=== PATIENT | female | born 1970 | race African-American/Black ===

== ENCOUNTER 2017-02-13 13:55 | Outpatient (CLI) | payer OTHER | END 2017-02-13 13:56 | disposition home or self-care (01) | LOC: HPCALD 13:55 | PROVIDERS: ATTEND Family Medicine | DX: N76.0 Acute vaginitis (principal) | CPT/HCPCS: 87480; 87491; 87510; 87591; 87660 ==

== ENCOUNTER 2017-04-08 16:44 | Outpatient (CLI) | payer OTHER | END 2017-04-08 16:45 | disposition home or self-care (01) | LOC: HPCALD 16:44 | PROVIDERS: ATTEND Family Medicine | DX: N89.8 Other specified noninflammatory disorders of vagina (principal) | CPT/HCPCS: 87480; 87510; 87660 ==

== ENCOUNTER 2017-06-09 00:13 | Emergency (ER) | payer OTHER | END 2017-06-09 00:58 | disposition home or self-care (01) | LOC: BURERS 00:13 | DX: G43.909 Migraine, unspecified, not intractable, without status migrainosus (principal); K58.9 Irritable bowel syndrome, unspecified; M19.90 Unspecified osteoarthritis, unspecified site; J44.9 Chronic obstructive pulmonary disease, unspecified; K27.9 Peptic ulcer, site unspecified, unspecified as acute or chronic, without hemorrhage or perforation; F41.9 Anxiety disorder, unspecified; F31.9 Bipolar disorder, unspecified; F17.210 Nicotine dependence, cigarettes, uncomplicated; E11.40 Type 2 diabetes mellitus with diabetic neuropathy, unspecified; Z79.899 Other long term (current) drug therapy; Z79.84 Long term (current) use of oral hypoglycemic drugs | CPT/HCPCS: 99283 ==

== ENCOUNTER 2017-08-26 14:00 | Emergency (ER) | payer OTHER ==
[2017-08-26 15:00] LABS: Bilirubin Negative (Negative); Blood, Urine Negative (Negative); Clarity Slightly Cloudy (Clear); Glucose, Urine (Dipstick) Negative (Negative); Leukocyte Negative (Negative); Nitrite Negative (Negative); Protein, Urine (Dipstick) Trace mg/dL (Neg-Trace); Urobilinogen 0.2 mg/dL (0.2-1.0); pH, Urine 5.5 (5.0-9.0)
[2017-08-26] MEDS ORDERED: Azithromycin 250 MG TAB ONE (15:08)
[2017-08-28 02:36] LABS: Chlamydia by PCR Not Detected (NotDetected); GC by PCR Not Detected (NotDetected)
== END 2017-08-26 15:13 | disposition home or self-care (01) ==
LOC: BURERS 14:00
DX: N76.0 Acute vaginitis (principal); M19.90 Unspecified osteoarthritis, unspecified site; J44.9 Chronic obstructive pulmonary disease, unspecified; E11.40 Type 2 diabetes mellitus with diabetic neuropathy, unspecified; F31.9 Bipolar disorder, unspecified; F41.9 Anxiety disorder, unspecified; F17.210 Nicotine dependence, cigarettes, uncomplicated
CPT/HCPCS: 81003; 87480; 87491; 87510; 87591; 87660; 99284

== ENCOUNTER 2017-09-15 00:18 | Emergency (ER) | payer OTHER ==
[2017-09-15] MEDS ORDERED: Ondansetron HCl/PF 4 MG/2 ML Vial ONE (00:59)
[2017-09-15] MEDS ORDERED: Morphine 4 MG/ML Carpuject ONE (00:59)
[2017-09-15 01:09] LABS: #Basophils 0.2 thou/uL (0.0-0.2); #Eosinphils 0.3 thou/uL (0.0-0.7); #Lymphocytes 5.3 thou/uL (1.20-3.40); #Neutrophils 9.3 thou/uL (1.40-6.50); %Basophils 1.4 % (0.0-1.0); %Lymphocytes 32.9 % (21.0-51.0); %Monocytes 6.3 % (0.0-10.0); %Neutrophils 57.3 % (42.0-75.0); Hemoglobin 14.8 g/dL (12.0-16.0); Mean Corpuscular HGB CONC 32.3 g/dL (32.0-36.0); Mean Corpuscular Hemoglobin 29.4 pg (27.0-31.0); Mean Corpuscular Volume 91.1 fl (81.0-99.0); Mean Platelet Volume 7.6 fL (7.4-10.4); Platelet Count 306 thou/uL (130-400); RBC Distribution Width 12.9 % (11.5-14.5); Red Blood Cell (RBC) Count 5.03 mill/uL (4.20-5.40); White Blood Cell (WBC) Count 16.2 thou/uL (4.8-10.8)
[2017-09-15 01:18] LABS: ALT (SGPT) 26 U/L (8-55); AST (SGOT) 21 U/L (5-34); Albumin 4.3 g/dL (3.5-5.0); Alkaline Phosphatase 79 U/L (40-150); Anion Gap 14 mmol/L (10-20); BUN (Urea Nitrogen) 10 mg/dL (7.0-18.7); Bilirubin, Total 0.2 mg/dL (0.2-1.2); Calc. Creatinine Clearance 0 mL/min (70-130); Calcium 9.7 mg/dL (7.8-10.44); Carbon Dioxide 17 mmol/L (22-29); Chloride 111 mmol/L (98-107); Estimated GFR-MDRD 72; Globulin 3.7 g/dL (2.4-3.5); Glucose 93 mg/dL (70-105); Potassium 3.8 mmol/L (3.5-5.1); Sodium 138 mmol/L (136-145)
[2017-09-15] MEDS ORDERED: traMADol HCl 50 MG TAB ONE (01:50)
[2017-09-15 02:10] LABS: Bilirubin Negative (Negative); Blood, Urine Negative (Negative); Clarity Clear (Clear); Glucose, Urine (Dipstick) Negative (Negative); Leukocyte Negative (Negative); Nitrite Negative (Negative); Protein, Urine (Dipstick) Negative (Neg-Trace); Urobilinogen 0.2 mg/dL (0.2-1.0)
--- NOTE | 2017-09-15 07:38 | CT ---
PRELIMINARY REPORT/[facility]/EMERGENCY AFTER HOURS PROCEDURE: EXAM: CT Abdomen and Pelvis Without Intravenous Contrast CLINICAL HISTORY: 47 years old, female; Signs and symptoms; Other: Diarrhea; Patient HX: Pt presents to the er for diar traci, abdominal and flank pain TECHNIQUE: Axial computed tomography images of the abdomen and pelvis without intravenous contrast. All CT scans at this facility use one or more dose reduction techniques, viz.: automated exposure control; ma/kV adjustment per patient size (including targeted exams where dose is matched to indication; i.e. head) ; or iterative reconstruction technique. Coronal reformatted images were created and reviewed. COMPARISON: No relevant prior studies available. FINDINGS: Lower thorax: There is minimal bibasilar atelectatic change or scarring. ABDOMEN: Liver: There is hepatomegaly. Gallbladder and bile ducts: Unremarkable. No calcified stones. No ductal dilation. Pancreas: Unremarkable. No ductal dilation. Spleen: Unremarkable. No splenomegaly. Adrenals: Unremarkable. No mass. Kidneys and ureters: Unremarkable. No obstructing stones. No hydronephrosis. Stomach and bowel: Unremarkable. No obstruction. No mucosal thickening. Appendix: The appendix is unremarkable and seen best on axial image 48 of series 2. PELVIS: Bladder: Unremarkable. No stones. Reproductive: There are likely postoperative changes of hysterectomy. ABDOMEN and PELVIS: Intraperitoneal space: Unremarkable. No free air. No significant fluid collection. Bones/joints: No acute fracture. No dislocation. Soft tissues: Unremarkable. Vasculature: There are calcified phleboliths in the pelvis. No abdominal aortic aneurysm. Lymph nodes: Unremarkable. No enlarged lymph nodes. IMPRESSION: No acute findings. Thank you for allowing us to participate in the care of your patient. Dictated and Authenticated by: Kartik Herrera MD 09/15/2017 1:29 AM Central Time ([place] & [place]) FINAL REPORT CT ABDOMEN AND PELVIS WITHOUT CONTRAST: Date: 09/15/17 Comparison is made with the 07/07/15 CT scan. Axial slices were acquired after giving IV contrast. Coronal reconstructions were then done. FINDINGS: The lung bases are clear, except for some dependent atelectasis. The liver is a little generous in si ze, but no different than before. The spleen is unremarkable. There are no inflammatory changes aroun d the spleen as there were previously. The adrenal glands, kidneys, pancreas, gallbladder, and abdomi nal aorta are unremarkable within the limitations of a noncontrast study. The bowel is nondistended with no sign of obstruction. There are no particularly thickened loops or i nflammatory changes around bowel. No free air or free fluid is seen. Incidentally noted is a minimal fat-filled umbilical hernia that is no different than before. CT of the pelvis shows no pelvic mass, inflammatory changes, or other acute findings. No sign of appe ndicitis or diverticulitis. No acute bony changes detected. IMPRESSION: No acute abdominal or pelvic findings to explain the patient's symptoms. REPORT IN AGREEMENT WITH PRELIMINARY READING BY JOLYNN. POS: HOME
== END 2017-09-15 00:55 | disposition home or self-care (01) ==
LOC: BURERS 00:18
DX: R19.7 Diarrhea, unspecified (principal); K58.9 Irritable bowel syndrome, unspecified; M19.90 Unspecified osteoarthritis, unspecified site; J44.9 Chronic obstructive pulmonary disease, unspecified; K21.9 Gastro-esophageal reflux disease without esophagitis; E11.40 Type 2 diabetes mellitus with diabetic neuropathy, unspecified; F41.9 Anxiety disorder, unspecified; F31.9 Bipolar disorder, unspecified; F17.210 Nicotine dependence, cigarettes, uncomplicated; Z79.84 Long term (current) use of oral hypoglycemic drugs; Z79.899 Other long term (current) drug therapy
CPT/HCPCS: 74176; 80053; 81003; 85025; 96361; 96365; 96375; J2270; J2405

== ENCOUNTER 2017-10-19 10:33 | Emergency (ER) | payer OTHER ==
[2017-10-19] MEDS ORDERED: AMOXicillin 250 MG CAP ONE (11:23)
== END 2017-10-19 11:23 | disposition home or self-care (01) ==
LOC: BURERS 10:33
DX: J20.9 Acute bronchitis, unspecified (principal); M79.1 Myalgia; K58.9 Irritable bowel syndrome, unspecified; E11.40 Type 2 diabetes mellitus with diabetic neuropathy, unspecified; J44.9 Chronic obstructive pulmonary disease, unspecified; K21.9 Gastro-esophageal reflux disease without esophagitis; F31.9 Bipolar disorder, unspecified; F41.9 Anxiety disorder, unspecified; F17.210 Nicotine dependence, cigarettes, uncomplicated; M19.90 Unspecified osteoarthritis, unspecified site
CPT/HCPCS: 87804; 99283

== ENCOUNTER 2017-11-11 18:02 | Emergency (ER) | payer OTHER ==
[2017-11-11] MEDS ORDERED: HYDROcodone/Acetaminophen 10/325 mg Tablet ONE (18:47)
[2017-11-11] MEDS ORDERED: Sulfameth/Trimethoprim DS 800-160mg TAB ONE (18:48)
[2017-11-11] MEDS ORDERED: Clindamycin 150 MG CAP ONE (18:48)
== END 2017-11-11 18:55 | disposition home or self-care (01) ==
LOC: BURERS 18:02
DX: N76.2 Acute vulvitis (principal); L73.9 Follicular disorder, unspecified; M19.90 Unspecified osteoarthritis, unspecified site; J44.9 Chronic obstructive pulmonary disease, unspecified; K21.9 Gastro-esophageal reflux disease without esophagitis; F25.9 Schizoaffective disorder, unspecified; F41.9 Anxiety disorder, unspecified; F31.9 Bipolar disorder, unspecified; E11.40 Type 2 diabetes mellitus with diabetic neuropathy, unspecified; F17.210 Nicotine dependence, cigarettes, uncomplicated
CPT/HCPCS: 99282

== ENCOUNTER 2018-05-30 23:54 | Emergency (ER) | payer OTHER, SELFPAY ==
[2018-05-31 00:49] LABS: #Basophils 0.2 thou/uL (0.0-0.2); #Eosinphils 0.5 thou/uL (0.0-0.7); #Lymphocytes 4.8 thou/uL (1.20-3.40); #Monocytes 0.8 thou/uL (0.11-0.59); %Eosinophils 2.6 % (0.0-10.0); %Lymphocytes 27.8 % (21.0-51.0); %Monocytes 4.8 % (0.0-10.0); %Neutrophils 63.8 % (42.0-75.0); Hemoglobin 13.3 g/dL (12.0-16.0); Mean Corpuscular HGB CONC 35.4 g/dL (32.0-36.0); Mean Corpuscular Hemoglobin 28.2 pg (27.0-31.0); Mean Corpuscular Volume 79.6 fL (78.0-98.0); Mean Platelet Volume 7.4 fL (7.4-10.4); Platelet Count 296 thou/uL (130-400); RBC Distribution Width 13.4 % (11.5-14.5); Red Blood Cell (RBC) Count 4.71 mill/uL (4.20-5.40); White Blood Cell (WBC) Count 17.2 thou/uL (4.8-10.8)
[2018-05-31 00:52] LABS: ALT (SGPT) 16 U/L (8-55); AST (SGOT) 15 U/L (5-34); Albumin 4.4 g/dL (3.5-5.0); Alkaline Phosphatase 59 U/L (40-150); Anion Gap 13 mmol/L (10-20); BUN (Urea Nitrogen) 16 mg/dL (7.0-18.7); Bilirubin, Total Less than 0.2 mg/dL (0.2-1.2); Calc. Creatinine Clearance 0 mL/min (70-130); Calcium 10.4 mg/dL (7.8-10.44); Carbon Dioxide 24 mmol/L (22-29); Chloride 109 mmol/L (98-107); Estimated GFR-MDRD 68; Globulin 3.4 g/dL (2.4-3.5); Glucose 134 mg/dL (70-105); Potassium 3.9 mmol/L (3.5-5.1); Protein, Total 7.8 g/dL (6.0-8.3); Sodium 142 mmol/L (136-145)
[2018-05-31 00:55] LABS: CKMB 1.2 ng/mL (0-6.6); Troponin I Less than 0.010 ng/mL (< 0.028)
[2018-05-31 01:18] LABS: Bilirubin Negative (Negative); Blood, Urine Negative (Negative); Clarity Clear (Clear); Glucose, Urine (Dipstick) Negative (Negative); Leukocyte Negative (Negative); Nitrite Negative (Negative); Protein, Urine (Dipstick) Negative (Neg-Trace); Urobilinogen 0.2 mg/dL (0.2-1.0)
[2018-05-31] MEDS ORDERED: AMOXicillin 250 MG CAP ONE (01:59)
[2018-05-31] MEDS ORDERED: Acetaminophen 500 MG TAB ONE (01:59)
[2018-05-31 02:16] LABS: Amphetamine Not Detected (NotDetected); Barbiturates Screen Not Detected (NotDetected); Benzodiazepine Screen Not Detected (NotDetected); Cocaine Metabolite Screen Not Detected (NotDetected); Medtox Control Line Valid? VALID (VALID); Methadone Not Detected (NotDetected); Methamphetamine Not Detected (NotDetected); Opiate Screen Not Detected (NotDetected); Oxycodone Screen Not Detected (NotDetected); Phencyclidine (PCP) Not Detected (NotDetected); THC/Cannabinoid Screen Not Detected (NotDetected); Tricyclic Screen Not Detected (NotDetected)
--- NOTE | 2018-05-31 08:10 | RAD ---
PORTABLE CHEST: DATE: 05/31/18. FINDINGS: An AP portable film at 0009 is compared with a 02/10/18 study. The heart is borderline in size compared to before, but there is no vascular congestion, edema, or pl eural effusion. No focal pulmonary infiltrate was seen. The mediastinum appears normal. IMPRESSION: No acute findings, except perhaps very slight increase in heart size over time. POS: HOME
== END 2018-05-31 02:10 | disposition home or self-care (01) ==
LOC: BURERS 23:54
DX: R07.9 Chest pain, unspecified (principal); K02.9 Dental caries, unspecified; E11.40 Type 2 diabetes mellitus with diabetic neuropathy, unspecified; J44.9 Chronic obstructive pulmonary disease, unspecified; F25.9 Schizoaffective disorder, unspecified; F20.9 Schizophrenia, unspecified; F17.210 Nicotine dependence, cigarettes, uncomplicated; Z79.84 Long term (current) use of oral hypoglycemic drugs; Z79.899 Other long term (current) drug therapy; Z79.82 Long term (current) use of aspirin
CPT/HCPCS: 71045; 80053; 80306; 81003; 82553; 83880; 84484; 85025; 93005; 94760

== ENCOUNTER 2018-08-07 17:08 | Emergency (ER) | payer OTHER | END 2018-08-07 17:35 | disposition home or self-care (01) | LOC: BURERS 17:08 | DX: G89.29 Other chronic pain (principal); M54.9 Dorsalgia, unspecified; M25.562 Pain in left knee; M25.561 Pain in right knee; M25.551 Pain in right hip; M25.552 Pain in left hip; E11.9 Type 2 diabetes mellitus without complications; E11.40 Type 2 diabetes mellitus with diabetic neuropathy, unspecified; J44.9 Chronic obstructive pulmonary disease, unspecified; F25.9 Schizoaffective disorder, unspecified; F20.9 Schizophrenia, unspecified; F17.210 Nicotine dependence, cigarettes, uncomplicated; Z79.899 Other long term (current) drug therapy; Z79.84 Long term (current) use of oral hypoglycemic drugs; Z79.82 Long term (current) use of aspirin | CPT/HCPCS: 99283 ==

== ENCOUNTER 2018-08-12 22:06 | Emergency (ER) | payer OTHER ==
[2018-08-12] MEDS ORDERED: Benzonatate 100 MG CAP ONE ×2 (22:32→22:33)
[2018-08-12] MEDS ORDERED: Azithromycin 250 MG TAB ONE (22:32)
== END 2018-08-12 22:37 | disposition home or self-care (01) ==
LOC: BURERS 22:06
DX: J44.1 Chronic obstructive pulmonary disease with (acute) exacerbation (principal); E11.40 Type 2 diabetes mellitus with diabetic neuropathy, unspecified; F25.9 Schizoaffective disorder, unspecified; F17.210 Nicotine dependence, cigarettes, uncomplicated; Z79.84 Long term (current) use of oral hypoglycemic drugs; Z79.899 Other long term (current) drug therapy
CPT/HCPCS: 93005

== ENCOUNTER 2018-11-14 18:53 | Emergency (ER) | payer OTHER | END 2018-11-14 19:25 | disposition home or self-care (01) | LOC: BURERS 18:53 | DX: K12.0 Recurrent oral aphthae (principal); I25.10 Atherosclerotic heart disease of native coronary artery without angina pectoris; E11.40 Type 2 diabetes mellitus with diabetic neuropathy, unspecified; K21.9 Gastro-esophageal reflux disease without esophagitis; I10 Essential (primary) hypertension; J44.9 Chronic obstructive pulmonary disease, unspecified; F20.9 Schizophrenia, unspecified; F17.210 Nicotine dependence, cigarettes, uncomplicated; Z79.899 Other long term (current) drug therapy; Z79.51 Long term (current) use of inhaled steroids | CPT/HCPCS: 99282 ==

== ENCOUNTER 2019-03-18 23:22 | Emergency (ER) | payer OTHER ==
[2019-03-18] MEDS ORDERED: Clindamycin 150 MG CAP ONE (23:54)
[2019-03-18] MEDS ORDERED: HYDROcodone/Acetaminophen 10/325 mg Tablet ONE (23:54)
[2019-03-19] MEDS ORDERED: Adacel (T-DAP) 0.5 ML SYRINGE ONE (00:05)
== END 2019-03-19 00:22 | disposition home or self-care (01) ==
LOC: BURERS 23:22
DX: L05.01 Pilonidal cyst with abscess (principal); E11.40 Type 2 diabetes mellitus with diabetic neuropathy, unspecified; K21.9 Gastro-esophageal reflux disease without esophagitis; I10 Essential (primary) hypertension; J44.9 Chronic obstructive pulmonary disease, unspecified; F20.9 Schizophrenia, unspecified; F17.210 Nicotine dependence, cigarettes, uncomplicated; Z79.899 Other long term (current) drug therapy; Z79.84 Long term (current) use of oral hypoglycemic drugs
CPT/HCPCS: 10080; 90715

== ENCOUNTER 2019-03-30 23:15 | Emergency (ER) | payer OTHER ==
[2019-03-30] MEDS ORDERED: Nitroglycerin 0.4 MG TAB 1 EACH ONE (23:40)
[2019-03-30] MEDS ORDERED: Nitroglycerin 0.4 MG TAB (25 Tab Bottle) ONE (23:43)
[2019-03-30 23:57] LABS: #Basophils 0.1 thou/uL (0.0-0.2); #Eosinphils 0.4 thou/uL (0.0-0.7); #Lymphocytes 4.8 thou/uL (1.20-3.40); #Neutrophils 9.8 thou/uL (1.40-6.50); %Basophils 0.7 % (0.0-1.0); %Eosinophils 2.3 % (0.0-10.0); %Monocytes 6.1 % (0.0-10.0); %Neutrophils 60.9 % (42.0-75.0); Hemoglobin 13.3 g/dL (12.0-16.0); Mean Corpuscular Volume 90.7 fL (78.0-98.0); Mean Platelet Volume 8.3 fL (7.4-10.4); Platelet Count 321 thou/uL (130-400); Red Blood Cell (RBC) Count 4.57 mill/uL (4.20-5.40)
[2019-03-31 00:09] LABS: ALT (SGPT) 19 U/L (8-55); AST (SGOT) 16 U/L (5-34); Albumin 4.2 g/dL (3.5-5.0); Alkaline Phosphatase 74 U/L (40-150); Anion Gap 14 mmol/L (10-20); BUN (Urea Nitrogen) 10 mg/dL (7.0-18.7); Bilirubin, Total 0.3 mg/dL (0.2-1.2); Calc. Creatinine Clearance 0 mL/min (70-130); Calcium 9.8 mg/dL (7.8-10.44); Carbon Dioxide 22 mmol/L (22-29); Chloride 106 mmol/L (98-107); Estimated GFR-MDRD Greater than 90; Globulin 3.4 g/dL (2.4-3.5); Glucose 148 mg/dL (70-105); Potassium 3.9 mmol/L (3.5-5.1); Protein, Total 7.6 g/dL (6.0-8.3); Sodium 138 mmol/L (136-145)
--- NOTE | 2019-03-31 07:19 | RAD ---
PORTABLE CHEST: Date: 03/30/19 An AP portable film at 2358 hours is compared with the 05/31/18 study. FINDINGS: The heart is normal in size and the lungs are clear. No infiltrate or effusion seen. There is no vasc ular congestion or edema. Mediastinum appears normal. IMPRESSION: No acute thoracic findings. POS: HOME
== END 2019-03-31 00:57 | disposition home or self-care (01) ==
LOC: BURERS 23:15
DX: R07.9 Chest pain, unspecified (principal); E11.40 Type 2 diabetes mellitus with diabetic neuropathy, unspecified; I10 Essential (primary) hypertension; J44.9 Chronic obstructive pulmonary disease, unspecified; F17.210 Nicotine dependence, cigarettes, uncomplicated; Z79.899 Other long term (current) drug therapy; Z79.84 Long term (current) use of oral hypoglycemic drugs
CPT/HCPCS: 36415; 71045; 80053; 84484; 85025; 85379; 93005

== ENCOUNTER 2019-06-12 15:10 | Emergency (ER) | payer OTHER ==
[~2019-06-12 15:10] MED LIST: Iopamidol 370 76% 100 ML VIAL ONE
[2019-06-12 16:13] LABS: Band 1 % (5-11); Eosinophils 1 % (0-10); Hemoglobin 15.8 g/dL (12.0-16.0); Lymphocytes 41 % (21-51); MDiff Complete? YES; Mean Corpuscular HGB CONC 31.3 g/dL (32.0-36.0); Mean Corpuscular Hemoglobin 28.6 pg (27.0-31.0); Mean Corpuscular Volume 91.2 fL (78.0-98.0); Mean Platelet Volume 7.4 fL (7.4-10.4); Monocytes 5 % (0-10); Neutrophil 52 % (42-75); Platelet Count 372 thou/uL (130-400); RBC Distribution Width 13.4 % (11.5-14.5); Red Blood Cell (RBC) Count 5.54 mill/uL (4.20-5.40); White Blood Cell (WBC) Count 18.6 thou/uL (4.8-10.8)
[2019-06-12 16:23] LABS: ALT (SGPT) 25 U/L (8-55); AST (SGOT) 19 U/L (5-34); Alkaline Phosphatase 78 U/L (40-150); Anion Gap 19 mmol/L (10-20); BUN (Urea Nitrogen) 8 mg/dL (7.0-18.7); Bilirubin, Total 0.2 mg/dL (0.2-1.2); Calc. Creatinine Clearance 0 mL/min (70-130); Calcium 10.9 mg/dL (7.8-10.44); Carbon Dioxide 22 mmol/L (22-29); Chloride 103 mmol/L (98-107); Estimated GFR-MDRD 86; Globulin 3.7 g/dL (2.4-3.5); Glucose 99 mg/dL (70-105); Potassium 4.9 mmol/L (3.5-5.1); Protein, Total 8.7 g/dL (6.0-8.3); Sodium 139 mmol/L (136-145)
[2019-06-12 16:51] LABS: Bilirubin Negative (Negative); Blood, Urine Negative (Negative); Clarity Clear (Clear); Glucose, Urine (Dipstick) Negative (Negative); Leukocyte Trace (Negative); Nitrite Negative (Negative); Protein, Urine (Dipstick) Negative (Neg-Trace); Urobilinogen 0.2 mg/dL (Less than 2)
[2019-06-12 16:58] LABS: Bacteria/HPF None Seen HPF (None Seen); Broad Cast None Seen LPF (None Seen); Calcium Oxalate Crystals None Seen HPF (None Seen); Cellular Cast None Seen LPF (None Seen); Epithelial Cast None Seen LPF (None Seen); Fatty Cast None Seen LPF (None Seen); Mucous/LPF None Seen LPF (<2+); Other Casts None Seen LPF (None Seen); Oval Fat Bodies/HPF None Seen HPF (None Seen); RBC/HPF None Seen HPF (0-3); Red Blood Cell Cast None Seen LPF (None Seen); Renal Epithelial None Seen HPF (None Seen); Sperm/HPF None Seen HPF (None Seen); Squamous Epithelial None Seen HPF (0-3); Transitional Epithelial None Seen HPF (None Seen); Trichomonas/HPF None Seen HPF (None Seen); Triple Phosphate Crystal None Seen HPF (None Seen); Unclassified Crystals None Seen HPF (None Seen); WBC/HPF 0-3 HPF (0-3); Waxy Cast None Seen LPF (None Seen); White Blood Cell Cast None Seen LPF (None Seen); Yeast-Budding None Seen HPF (None Seen); Yeast-Hyphae None Seen HPF (None Seen)
[2019-06-12] MEDS ORDERED: Aspirin Chewable 81 MG TAB ONE (17:01)
[2019-06-12] MEDS ORDERED: methylPREDNISolone Sod Succ/PF 125 MG/2 ML VIAL ONE (17:45)
--- NOTE | 2019-06-13 09:27 | RAD ---
PORTABLE CHEST: DATE: 06/12/2019. FINDINGS: An AP portable film at 1620 is compared with a 05/04/2019 study. The heart is normal in size and the lungs are clear. No infiltrate or effusion was seen. There is no vascular congestion, edema, or oth er acute change. IMPRESSION: Stable chest showing no acute findings. POS: HOME
--- NOTE | 2019-06-13 09:31 | CT ---
CT ANGIO OF THE CHEST: DATE: 06/12/2019. FINDINGS: Spiral CT of the chest was performed after a bolus of IV contrast. Axial slices were acquired follow ed by oblique coronal and coronal MIP reformations through the pulmonary arteries. There is moderate opacification of the pulmonary arteries. Much of the contrast has already followed into the aorta. There were no filling defects seen to suggest emboli in the larger to mid level pul monary branches. Mid to distal branches are not seen well enough to comment on. There is no sign of aortic aneurysm or dissection. The heart seems a little generous in size, particularly the left atr ium. The lungs themselves are clear with no infiltrate aside from some minor dependent atelectasis. There are a few small blebs forming in the right upper lobe. The visible portions of the upper abdomen were unremarkable, except there may be a small cyst in the dome of the right lobe of the liver. A small hiatal hernia was suggested as well. IMPRESSION: Moderate sensitivity study showing no evidence of pulmonary embolism or acute cardiopulmonary process . Results called to Dr. Whiteside @ [id number] on 06/12/2019. POS: HOME
== END 2019-06-12 17:56 | disposition home or self-care (01) ==
LOC: BURERS 15:10
DX: R07.89 Other chest pain (principal); M12.9 Arthropathy, unspecified; E11.40 Type 2 diabetes mellitus with diabetic neuropathy, unspecified; F31.9 Bipolar disorder, unspecified; F41.9 Anxiety disorder, unspecified; K21.9 Gastro-esophageal reflux disease without esophagitis; J44.9 Chronic obstructive pulmonary disease, unspecified; K58.9 Irritable bowel syndrome, unspecified; I10 Essential (primary) hypertension; F17.210 Nicotine dependence, cigarettes, uncomplicated; Z79.84 Long term (current) use of oral hypoglycemic drugs; Z79.899 Other long term (current) drug therapy
CPT/HCPCS: 71045; 71275; 80053; 80178; 81003; 81015; 83880; 84484; 85025; 85379; 86140; 93005; 96361; 96374; J2930; Q9967

== ENCOUNTER 2025-09-08 23:41 | Emergency (ER) | payer MEDICAID ==
[2025-09-09 00:36] LABS: Glucose, Urine (Dipstick) Negative (Negative); Leukocyte Small (Negative); Protein, Urine (Dipstick) 100 mg/dL (Neg-Trace); Specific Gravity, Urine 1.025 (1.005-1.030)
[2025-09-09 00:37] LABS: Bacteria/HPF None Seen HPF (None Seen); CAUTI Indications for Culture Dysuria,urgency,freq; WBC/HPF 0-3 HPF (0-3)
[2025-09-09 00:38] LABS: Urine Culture Reflex No No
[2025-09-09 00:44] LABS: Cocaine Metabolite Screen PRELIM POSITIVE (Negative); THC/Cannabinoid Screen PRELIM POSITIVE (Negative); Tricyclic Screen Negative (Negative)
[2025-09-09 01:52] LABS: #Basophils 0.1 thou/uL (0.0-0.2); #Eosinophils 0.2 thou/uL (0.0-0.7); #Lymphocytes 4.0 thou/uL (1.20-3.40); #Monocytes 0.9 thou/uL (0.11-0.59); #Neutrophils 10.8 thou/uL (1.40-6.50); %Basophils 0.6 % (0.0-1.0); %Eosinophils 1.1 % (0.0-10.0); %Lymphocytes 24.8 % (21.0-51.0); %Monocytes 5.5 % (0.0-10.0); %Neutrophils 68.0 % (42.0-75.0); Hematocrit 46.1 % (36.0-47.0); Hemoglobin 14.9 g/dL (12.0-16.0); Mean Corpuscular Hemoglobin 30.3 pg (27.0-31.0); Mean Corpuscular Volume 93.5 fl (78.0-98.0); Platelet Count 382 10x3/uL (130-400); Red Blood Cell (RBC) Count 4.93 mill/uL (4.20-5.40); White Blood Cell (WBC) Count 16.0 10x3/uL (4.8-10.8)
[2025-09-09 02:10] LABS: ALT (SGPT) 16 U/L (Less than 34); AST (SGOT) 23 U/L (11-34); Albumin 4.2 g/dL (3.1-4.5); Alkaline Phosphatase 86 U/L (40-110); Anion Gap 19 mmol/L (10-20); BUN (Urea Nitrogen) 31 mg/dL (9.8-20.1); Bilirubin, Total 0.2 mg/dL (0.3-1.2); Calc. Creatinine Clearance 0 mL/min (70-130); Calcium 9.7 mg/dL (7.8-10.44); Carbon Dioxide 19 mmol/L (22-29); Chloride 108 mmol/L (98-107); Globulin 3.5 g/dL (2.4-3.5); Glucose 136 mg/dL (70-105); Potassium 3.4 mmol/L (3.5-5.1); Sodium 143 mmol/L (136-145)
[2025-09-09 02:20] LABS: Control Line Color Pink/Red Line (Pink/Red); HIV-1/2 Antibodies Non Reactive (NonReactive)
[2025-09-10 00:58] LABS: Chlam.trachomatis by PCR,Urine Not Detected (NotDetected); GC N.gonorrhoeae PCR,UrineVOID Not Detected (NotDetected)
== END 2025-09-09 02:31 | disposition home or self-care (01) ==
LOC: BURERS 23:41
DX: F15.10 Other stimulant abuse, uncomplicated (principal); F12.10 Cannabis abuse, uncomplicated; F17.210 Nicotine dependence, cigarettes, uncomplicated; I12.9 Hypertensive chronic kidney disease with stage 1 through stage 4 chronic kidney disease, or unspecified chronic kidney disease; N18.9 Chronic kidney disease, unspecified; I48.91 Unspecified atrial fibrillation; E11.40 Type 2 diabetes mellitus with diabetic neuropathy, unspecified; J44.9 Chronic obstructive pulmonary disease, unspecified
CPT/HCPCS: 80053; 80306; 81001; 85025; 86703; 87491; 87591; 99283